=== PATIENT | male | born 1995 | race Two or more races ===

== ENCOUNTER 2024-06-22 16:56 | Emergency (ER) | payer MEDICAID, OTHER ==
[~2024-06-22] VITALS: Ht 180.3 cm; Wt 92.7 kg
[2024-06-22 18:49] VITALS: BP 126/90; PULSE 95; RESP 16; TEMP 97.8; O2SAT 97
[2024-06-22] MEDS ORDERED: HYDR-4604 PO (19:08)
== END 2024-06-22 19:12 | disposition home or self-care (01) ==
LOC: ER 17:03
DX: Z76.0 Encounter for issue of repeat prescription (principal); Z88.8 Allergy status to other drugs, medicaments and biological substances